=== PATIENT | female | born 2000 | race Two or more races ===

== ENCOUNTER 2021-06-03 00:38 | Observation (INO) | payer SELFPAY ==
[2021-06-03] MEDS ORDERED: IV RINGERS,LACTATED 1000ML 1,000 ML IV PRN (01:15)
[2021-06-03 01:28] LABS: BILIRUBIN,URINE NEGATIVE (NEG); CLARITY,URINE CLEAR; COLOR,URINE YELLOW; NITRITE,URINE NEGATIVE (NEG); PROTEIN,URINE 30 mg/dL (NEG-TRACE)
[2021-06-03 01:32] LABS: AMNIO PT NEGATIVE
[2021-06-03 01:38] LABS: RBC,URINE RARE /HPF (0-2)
[2021-06-03 01:40] LABS: BACTERIA,URINE 0 /HPF (0-FEW); YEAST,URINE PRESENT /HPF
== END 2021-06-03 03:32 | disposition home or self-care (01) ==
LOC: 3 SO LND 00:38
PROVIDERS: ADMIT Obstetrics & Gynecology; ATTEND Obstetrics & Gynecology
DX: O42.913 Preterm premature rupture of membranes, unspecified as to length of time between rupture and onset of labor, third trimester (principal); O26.893 Other specified pregnancy related conditions, third trimester; N89.8 Other specified noninflammatory disorders of vagina; Z3A.36 36 weeks gestation of pregnancy; Z79.899 Other long term (current) drug therapy
CPT/HCPCS: 36415; 59025; 81001; 84112; 87086; G0378; G0379

== ENCOUNTER 2021-06-07 03:33 | Inpatient (IN) | payer SELFPAY ==
[~2021-06-07] VITALS: Ht 165.1 cm; Wt 79.7 kg
[2021-06-07 04:03] LABS: BILIRUBIN,URINE NEGATIVE (NEG); CLARITY,URINE CLEAR; COLOR,URINE YELLOW; NITRITE,URINE NEGATIVE (NEG); PROTEIN,URINE NEGATIVE (NEG-TRACE); UROBILINOGEN,URINE 0.2 mg/dL (0.2 mg/dL)
[2021-06-07 04:09] LABS: BARBITURATES NEG (NEG); BENZODIAZEPINES NEG (NEG); CANNABINOIDS NEG (NEG); COCAINE NEG (NEG); METHADONE NEG (NEG); OPIATES NEG (NEG); PHENCYCLIDINE NEG (NEG)
[2021-06-07 04:10] LABS: BACTERIA,URINE 0 /HPF (0-FEW)
[2021-06-07 04:18] LABS: AMPHETAMINE/METHAMPHETAMINE NEG (NEG)
[2021-06-07] MEDS ORDERED: BENZOCAINE 20% TOPICAL AEROSOL SPRAY 57GM CAN. TP PRN (05:00)
[2021-06-07] MEDS ORDERED: diphenhydrAMINE HCL 25 MG CAPSULE PO PRN (05:00)
[2021-06-07] MEDS ORDERED: MAG HYDROX/ALUMINUM HYD/SIMETH 30 ML ORAL.SUSP PO PRN (05:00)
[2021-06-07] MEDS ORDERED: SIMETHICONE 80 MG TAB.CHEW PO PRN (05:00)
[2021-06-07] MEDS ORDERED: OXYTOCIN 30 UNIT/500 ML PREMIX 500 ML IV PRN ×2 (05:00→20:00)
[2021-06-07] MEDS ORDERED: MMR per PROTOCOL. MC PRN ×2 (05:00→20:00)
[2021-06-07] MEDS ORDERED: PHENYLEPH/MINERAL OIL/PETROLAT RECTAL OINTMENT TUBE. RC PRN (05:00)
[2021-06-07] MEDS ORDERED: 0.9 % SODIUM CHLORIDE 10 ML DISP.SYRIN. IV PRN ×2 (05:00→20:00)
[2021-06-07] MEDS ORDERED: ACETAMINOPHEN 325 MG TABLET. PO PRN (05:00)
[2021-06-07] MEDS ORDERED: TDaP (Adacel) per PROTOCOL. MC PRN ×2 (05:00→20:00)
[2021-06-07] MEDS ORDERED: ZOLPIDEM 5 MG TABLET. PO PRN (05:00)
[2021-06-07] MEDS ORDERED: HYDROCORTISONE 1% TOPICAL OINTMENT 30GM TUBE. TP PRN (05:00)
[2021-06-07] MEDS ORDERED: MAGNESIUM HYDROXIDE 2,400 MG/30 ML ORAL.SUSP. PO PRN (05:00)
[2021-06-07] MEDS ORDERED: oxyCODONE/APAP 5/325 1 TAB TABLET PO PRN (05:00)
[2021-06-07 05:31] VITALS: BP 117/70
[2021-06-07 06:29] LABS: HEMATOCRIT 35.2 % (36.0-47.0); HEMOGLOBIN 11.4 g/dL (12.0-15.5); RED BLOOD COUNT 4.16 x10^6/uL (3.50-5.40); RED CELL DISTRIBUTION WIDTH 14.8 % (11.5-14.5); WHITE BLOOD COUNT 15.8 x10^3/uL (4.0-11.0)
[2021-06-07] MEDS ORDERED: OXYTOCIN PREMIX 30 UNIT/500 ML NS BAG. IV ONE (07:30)
--- NOTE | 2021-06-07 08:05 | PDOC1 ---
ENDODONTIC ASSISTANT H&P Date of Admission: Date of Admission: Jun 07, 2021 at 03:33 History of Present Illness: EDC: 06/27/21 LMP: 08/13/20 21y @ 37.1 by 11wk u/s presents to L&D with LOF. The pt was confirmed SROM. The pt was dilated to 3 cm. PMH: Denies PSH: Denies Meds: PNV, Fe All: NKDA OBHx: G1 SH: no tob, no EtOH FH: noncontributory Allergies: Coded Allergies: No Known Drug Allergies (Unverified , 06/03/21) Physical Exam: Vital Signs: Vital Signs Date Time Temp Pulse Resp B/P (MAP) Pulse Ox O2 Delivery O2 Flow Rate FiO2 06/07/21 05:31 98.3 117 18 117/70 (86) 98 Room Air 98.3 PE: GENERAL: No apparent distress. Alert and oriented. HEENT: Head normocephalic, atraumatic. NECK: Supple LUNGS: Clear to auscultation. HEART: RRR, S1, S2 present, pulses intact ABDOMEN: Soft, positive bowel sounds. EXTREMITIES: No cyanosis or edema. NEUROLOGIC: Normal speech, normal tone PSYCHIATRIC: Normal affect, normal mood. SKIN: No ulceration. FHT: 150s +acels/no decels/mLTV [place]: 4-6 min SVE:3/75/-2 Labs: Laboratory Tests Test 06/07/21 03:50 06/07/21 05:03 Urine Collection Type Unknown Urine Color Yellow Urine Clarity Clear Urine pH 7.0 (<5.0-8.0) Urine Specific [place] <=1.005 (1.000-1.030) Urine Protein Negative mg/dL (NEG-TRACE) Urine Glucose (UA) Negative mg/dL (NEG) Urine Ketones (Stick) 40 mg/dL (NEG) Urine Blood Negative (NEG) Urine Nitrite Negative (NEG) Urine Bilirubin Negative (NEG) Urine Urobilinogen Dipstick 0.2 mg/dL (0.2 mg/dL) Urine Leukocyte Esterase Small (NEG) Urine RBC 1-2 /HPF (0-2) Urine WBC 1-4 /HPF (0-4) Urine Squamous Epithelial Cells Few /LPF Urine Bacteria 0 /HPF (0-FEW) Urine Mucus Slight /LPF Urine Opiates Screen Neg (NEG) Urine Methadone Screen Neg (NEG) Urine Barbiturates Neg (NEG) Urine Phencyclidine Screen Neg (NEG) Urine Amphetamine/Methamphetamine Neg (NEG) Urine Benzodiazepines Screen Neg (NEG) Urine Cocaine Screen Neg (NEG) Urine Cannabinoids Screen Neg (NEG) Urine Ethyl Alcohol Neg (NEG) White Blood Count 15.8 x10^3/uL (4.0-11.0) H Red Blood Count 4.16 x10^6/uL (3.50-5.40) Hemoglobin 11.4 g/dL (12.0-15.5) L Hematocrit 35.2 % (36.0-47.0) L Mean Corpuscular Volume 85 fL (79-100) Mean Corpuscular Hemoglobin 28 pg (25-35) Mean Corpuscular Hemoglobin Concent 33 g/dL (31-37) Red Cell Distribution Width 14.8 % (11.5-14.5) H Platelet Count 262 x10^3/uL (140-400) Laboratory Tests 06/07/21 05:03 Laboratory Tests 06/07/21 05:03 Assessment & Plan: A/P 21y @ 37.1 by 11wk u/s 1.) SROM on Pit for augmentation 2.) Marginal cord insertion 3.) hydronephrosis - resolved 4.) Elevated GTT - 0 of 4 values of 3hr GTT elevated 5.) Anemia - Fe daily 6.) Chl pos (12/04, 01/10) - ADELA neg (02/07) 7.) TDAP given 04/11/21 8.) Covid vaccine (J&J) given 01/10/21 9.) Fetus cat I FHT 10.) GBS pos on PCN LAILA YING MD Jun 07, 2021 08:05
[2021-06-07 08:06] VITALS: BP 101/60
--- NOTE | 2021-06-07 08:42 | PDOC ---
DIRECTOR TRIAL PROGRESS NOTE Date of Service: DATE: 06/07/21 TIME: 08:35 Subjective: Reports increased frequency/intensity of uterine contractions. Desires unmedicated labor/delivery. Denies FONTENOT, visual disturbances, RUQ pain. Otherwise denies complaints. Objective: Objective: Resting in right tilt position, breathing well through UCs/Palpate moderate. Fundus TTP. Afebrile, VSS. Leaking small amounts of clear, non-odorous fluid. SVE deferred. FHT: 155, mod variability, + accels, no decels. TOCO: q 2, 60 seconds. Vital Signs: Vital Signs Date Time Temp Pulse Resp B/P (MAP) Pulse Ox O2 Delivery O2 Flow Rate FiO2 06/07/21 05:31 98.3 117 18 117/70 (86) 98 Room Air 98.3 Vital Signs Date Time Temp Pulse Resp B/P (MAP) Pulse Ox O2 Delivery O2 Flow Rate FiO2 06/07/21 08:06 99.8 105 16 101/60 (74) 98 Room Air 99.8 Labs: Laboratory Tests Test 06/07/21 03:50 06/07/21 05:03 Urine Collection Type Unknown Urine Color Yellow Urine Clarity Clear Urine pH 7.0 (<5.0-8.0) Urine Specific [place] <=1.005 (1.000-1.030) Urine Protein Negative mg/dL (NEG-TRACE) Urine Glucose (UA) Negative mg/dL (NEG) Urine Ketones (Stick) 40 mg/dL (NEG) Urine Blood Negative (NEG) Urine Nitrite Negative (NEG) Urine Bilirubin Negative (NEG) Urine Urobilinogen Dipstick 0.2 mg/dL (0.2 mg/dL) Urine Leukocyte Esterase Small (NEG) Urine RBC 1-2 /HPF (0-2) Urine WBC 1-4 /HPF (0-4) Urine Squamous Epithelial Cells Few /LPF Urine Bacteria 0 /HPF (0-FEW) Urine Mucus Slight /LPF Urine Opiates Screen Neg (NEG) Urine Methadone Screen Neg (NEG) Urine Barbiturates Neg (NEG) Urine Phencyclidine Screen Neg (NEG) Urine Amphetamine/Methamphetamine Neg (NEG) Urine Benzodiazepines Screen Neg (NEG) Urine Cocaine Screen Neg (NEG) Urine Cannabinoids Screen Neg (NEG) Urine Ethyl Alcohol Neg (NEG) White Blood Count 15.8 x10^3/uL (4.0-11.0) H Red Blood Count 4.16 x10^6/uL (3.50-5.40) Hemoglobin 11.4 g/dL (12.0-15.5) L Hematocrit 35.2 % (36.0-47.0) L Mean Corpuscular Volume 85 fL (79-100) Mean Corpuscular Hemoglobin 28 pg (25-35) Mean Corpuscular Hemoglobin Concent 33 g/dL (31-37) Red Cell Distribution Width 14.8 % (11.5-14.5) H Platelet Count 262 x10^3/uL (140-400) Laboratory Tests 06/07/21 05:03 Laboratory Tests 06/07/21 05:03 Physical Exam: GENERAL: No apparent distress. Alert and oriented. HEENT: Head normocephalic, atraumatic. NECK: Supple LUNGS: Clear to auscultation. HEART: RRR, S1, S2 present, pulses intact ABDOMEN: Soft, positive bowel sounds. EXTREMITIES: No cyanosis or edema. NEUROLOGIC: Normal speech, normal tone PSYCHIATRIC: Normal affect, normal mood. SKIN: No ulceration. Assessment & Plan: Recc Gent 2/2 increasing maternal temp, fundal tenderness. Disscussed risks and concerns associated with PROM to include intrauterine infection and potential risks posed to . Pt. amenable. Titrate pitocin to adequate labor. Anticipate . AVELINA DORANTES CNM Jun 07, 2021 08:42
[2021-06-07] MEDS ORDERED: GENTAMICIN PER PHARMACY. MC PRN (08:45)
[2021-06-07] MEDS ORDERED: PENICILLIN G K 5,000,000 UNIT in IV DEXTROSE 5% 100ML 100 ML IV ONE (09:00)
[2021-06-07] MEDS ORDERED: GENTAMICIN SULFATE 80 MG in IV DEXTROSE 5% 100ML 100 ML IV ONE (09:30)
[2021-06-07 10:07] LABS: CREATININE < 0.2 mg/dL (0.6-1.0)
[2021-06-07] MEDS: IV RINGERS,LACTATED 1000ML 1,000 ML IV SCH ×2 (10:43→17:32)
--- NOTE | 2021-06-07 10:55 | NUR ---
Pharmacy Aminoglycoside Dosing Note S: Consulted to monitor and dose Gentamicin started 06/07/21 O:HOLLIBETO DE LA CRUZ is a 21 year old F with Chorioamnionitis Height: 5 feet, 5 inches Weight: 79.7 kg [place] Weight: 57.00 Adjusted Weight: 66.08 Dosing Weight:Adjusted Other Antibiotics: LABS: BUN: SCr:<0.2 CrCl: >100 WBC: 15.8 Platelet: Tmax (past 24 hours): 99.8 I/O: Last dose given 06/07/21 at 0925 A: Based on weight and renal function P: 1. Dose Gentamicin 1.2MG/KG IV q12h 2. Follow up peak levels on 06/08/21 at 1000 Follow up trough levels on 06/08/21 at 0830 3. Pharmacy will continue to monitor, follow and adjust therapy as needed. Angela Caraballo [facility], 06/07/21 [id number]
--- NOTE | 2021-06-07 11:00 | PDOC ---
WEBBING INSPECTOR PROGRESS NOTE Date of Service: DATE: 06/07/21 TIME: 10:52 Subjective: Reports increased intensity of UCs. Light spotting/bleeding with void. + FM. Otherwise denies complaints. Objective: Objective: Breathing well through contractions. FOB supportive at bedside, providing counter pressure for comfort. Afebrile, VSS. Gent complete. FHR: 155, moderate variability, + accels, occasional mild variable. TOCO: q 1.5-3 minutes, 60 seconds, palpate moderate. SVE 4/80/-1, soft, mid. Normal show with SVE. head well applied. Leaking small amounts of clear, non-odorous fluid. Vital Signs: Vital Signs Date Time Temp Pulse Resp B/P (MAP) Pulse Ox O2 Delivery O2 Flow Rate FiO2 06/07/21 05:31 98.3 117 18 117/70 (86) 98 Room Air 98.3 Vital Signs Date Time Temp Pulse Resp B/P (MAP) Pulse Ox O2 Delivery O2 Flow Rate FiO2 06/07/21 08:06 99.8 105 16 101/60 (74) 98 Room Air 99.8 Labs: Laboratory Tests Test 06/07/21 03:50 06/07/21 05:03 Urine Collection Type Unknown Urine Color Yellow Urine Clarity Clear Urine pH 7.0 (<5.0-8.0) Urine Specific [place] <=1.005 (1.000-1.030) Urine Protein Negative mg/dL (NEG-TRACE) Urine Glucose (UA) Negative mg/dL (NEG) Urine Ketones (Stick) 40 mg/dL (NEG) Urine Blood Negative (NEG) Urine Nitrite Negative (NEG) Urine Bilirubin Negative (NEG) Urine Urobilinogen Dipstick 0.2 mg/dL (0.2 mg/dL) Urine Leukocyte Esterase Small (NEG) Urine RBC 1-2 /HPF (0-2) Urine WBC 1-4 /HPF (0-4) Urine Squamous Epithelial Cells Few /LPF Urine Bacteria 0 /HPF (0-FEW) Urine Mucus Slight /LPF Urine Opiates Screen Neg (NEG) Urine Methadone Screen Neg (NEG) Urine Barbiturates Neg (NEG) Urine Phencyclidine Screen Neg (NEG) Urine Amphetamine/Methamphetamine Neg (NEG) Urine Benzodiazepines Screen Neg (NEG) Urine Cocaine Screen Neg (NEG) Urine Cannabinoids Screen Neg (NEG) Urine Ethyl Alcohol Neg (NEG) White Blood Count 15.8 x10^3/uL (4.0-11.0) H Red Blood Count 4.16 x10^6/uL (3.50-5.40) Hemoglobin 11.4 g/dL (12.0-15.5) L Hematocrit 35.2 % (36.0-47.0) L Mean Corpuscular Volume 85 fL (79-100) Mean Corpuscular Hemoglobin 28 pg (25-35) Mean Corpuscular Hemoglobin Concent 33 g/dL (31-37) Red Cell Distribution Width 14.8 % (11.5-14.5) H Platelet Count 262 x10^3/uL (140-400) Creatinine < 0.2 mg/dL (0.6-1.0) L Estimated GFR (Cockcroft-Gault) Treponema pallidum Antibody Nonreactive (Nonreactive) Laboratory Tests 06/07/21 05:03 Laboratory Tests 06/07/21 05:03 Laboratory Tests 06/07/21 05:03 Physical Exam: GENERAL: No apparent distress. Alert and oriented. HEENT: Head normocephalic, atraumatic. NECK: Supple LUNGS: Clear to auscultation. HEART: RRR, S1, S2 present, pulses intact ABDOMEN: Soft, positive bowel sounds. EXTREMITIES: No cyanosis or edema. NEUROLOGIC: Normal speech, normal tone PSYCHIATRIC: Normal affect, normal mood. SKIN: No ulceration. Assessment & Plan: A 1. 21yo G1 @ 37.1 weeks 2. PROM (06/03 @ 2300) 3. Chorioamnionitis 4. GBS positive 5. Cat 1 FHT P 1. Hold pitocin at 10mU at present, continue titration if UCs decrease in frequency or reported intensity 2. Continue Amp/Gent 3. Anticipate AVELINA DORANTES CNM Jun 07, 2021 11:00
[2021-06-07] MEDS: AMPICILLIN SODIUM 2 GM in IV NORMAL SALINE 100ML 100 ML IV SCH ×2 (12:27→19:06)
[2021-06-07] MEDS ORDERED: PENICILLIN G K 2,500,000 UNIT in IV DEXTROSE 5% 50 ML IV SCH (13:00)
[2021-06-07] MEDS: fentaNYL PF VIAL 100 MCG/2 ML VIAL IVP PRN ×2 (13:06→16:05)
--- NOTE | 2021-06-07 15:40 | PDOC ---
GOLD BLOWER PROGRESS NOTE Date of Service: DATE: 06/07/21 TIME: 15:36 Subjective: Reports contractions increased in intensity x 20 minutes. Breathing well through contractions. Resting complete right lateral. Objective: Objective: Leaking small amounts of clear, non-odorous fluid. SVE 5-6/90/-1, IUPC placed without difficulty. TOCO: q 2-3 minutes, lasting 60 seconds. Palpate strong. Afebrile, VSS. Pitocin at 12mU. Declines labor epidural for pain management. Repositioned to standing/swaying for comfort. Vital Signs: Vital Signs Date Time Temp Pulse Resp B/P (MAP) Pulse Ox O2 Delivery O2 Flow Rate FiO2 06/07/21 05:31 98.3 117 18 117/70 (86) 98 Room Air 98.3 Vital Signs Date Time Temp Pulse Resp B/P (MAP) Pulse Ox O2 Delivery O2 Flow Rate FiO2 06/07/21 13:06 20 96 Room Air 06/07/21 08:06 99.8 105 101/60 (74) 99.8 Labs: Laboratory Tests Test 06/07/21 03:50 06/07/21 05:03 Urine Collection Type Unknown Urine Color Yellow Urine Clarity Clear Urine pH 7.0 (<5.0-8.0) Urine Specific [place] <=1.005 (1.000-1.030) Urine Protein Negative mg/dL (NEG-TRACE) Urine Glucose (UA) Negative mg/dL (NEG) Urine Ketones (Stick) 40 mg/dL (NEG) Urine Blood Negative (NEG) Urine Nitrite Negative (NEG) Urine Bilirubin Negative (NEG) Urine Urobilinogen Dipstick 0.2 mg/dL (0.2 mg/dL) Urine Leukocyte Esterase Small (NEG) Urine RBC 1-2 /HPF (0-2) Urine WBC 1-4 /HPF (0-4) Urine Squamous Epithelial Cells Few /LPF Urine Bacteria 0 /HPF (0-FEW) Urine Mucus Slight /LPF Urine Opiates Screen Neg (NEG) Urine Methadone Screen Neg (NEG) Urine Barbiturates Neg (NEG) Urine Phencyclidine Screen Neg (NEG) Urine Amphetamine/Methamphetamine Neg (NEG) Urine Benzodiazepines Screen Neg (NEG) Urine Cocaine Screen Neg (NEG) Urine Cannabinoids Screen Neg (NEG) Urine Ethyl Alcohol Neg (NEG) White Blood Count 15.8 x10^3/uL (4.0-11.0) H Red Blood Count 4.16 x10^6/uL (3.50-5.40) Hemoglobin 11.4 g/dL (12.0-15.5) L Hematocrit 35.2 % (36.0-47.0) L Mean Corpuscular Volume 85 fL (79-100) Mean Corpuscular Hemoglobin 28 pg (25-35) Mean Corpuscular Hemoglobin Concent 33 g/dL (31-37) Red Cell Distribution Width 14.8 % (11.5-14.5) H Platelet Count 262 x10^3/uL (140-400) Creatinine < 0.2 mg/dL (0.6-1.0) L Estimated GFR (Cockcroft-Gault) Treponema pallidum Antibody Nonreactive (Nonreactive) Laboratory Tests 06/07/21 05:03 Laboratory Tests 06/07/21 05:03 Laboratory Tests 06/07/21 05:03 Physical Exam: GENERAL: No apparent distress. Alert and oriented. HEENT: Head normocephalic, atraumatic. NECK: Supple LUNGS: Clear to auscultation. HEART: RRR, S1, S2 present, pulses intact ABDOMEN: Soft, positive bowel sounds. EXTREMITIES: No cyanosis or edema. NEUROLOGIC: Normal speech, normal tone PSYCHIATRIC: Normal affect, normal mood. SKIN: No ulceration. Assessment & Plan: Continue current care. Anticipate . AVELINA DORANTES CNM Jun 07, 2021 15:40
--- NOTE | 2021-06-07 17:15 | PDOC ---
METAL TESTER PROGRESS NOTE Date of Service: DATE: 06/07/21 TIME: 17:11 Subjective: Difficulty coping with UCs. Declines labor epidural. Reports good pain relief with IV pain medication. FOB supportive at bedside. Objective: Objective: Afebrile, VSS. Resting in complete left lateral - amenable to hand/knees position to encourage rotation. . VTX LOP, asynclitic. SVE 6+/100/-1. FHR: 155, moderate variability, + accels, early/variable decels. IUPC: q 1.5-3. MVU: 225. Resting tone: 10mvu. Vital Signs: Vital Signs Date Time Temp Pulse Resp B/P (MAP) Pulse Ox O2 Delivery O2 Flow Rate FiO2 06/07/21 05:31 98.3 117 18 117/70 (86) 98 Room Air 98.3 Vital Signs Date Time Temp Pulse Resp B/P (MAP) Pulse Ox O2 Delivery O2 Flow Rate FiO2 06/07/21 16:05 20 Room Air 06/07/21 13:06 96 06/07/21 08:06 99.8 105 101/60 (74) 99.8 Labs: Laboratory Tests Test 06/07/21 03:50 06/07/21 05:03 Urine Collection Type Unknown Urine Color Yellow Urine Clarity Clear Urine pH 7.0 (<5.0-8.0) Urine Specific [place] <=1.005 (1.000-1.030) Urine Protein Negative mg/dL (NEG-TRACE) Urine Glucose (UA) Negative mg/dL (NEG) Urine Ketones (Stick) 40 mg/dL (NEG) Urine Blood Negative (NEG) Urine Nitrite Negative (NEG) Urine Bilirubin Negative (NEG) Urine Urobilinogen Dipstick 0.2 mg/dL (0.2 mg/dL) Urine Leukocyte Esterase Small (NEG) Urine RBC 1-2 /HPF (0-2) Urine WBC 1-4 /HPF (0-4) Urine Squamous Epithelial Cells Few /LPF Urine Bacteria 0 /HPF (0-FEW) Urine Mucus Slight /LPF Urine Opiates Screen Neg (NEG) Urine Methadone Screen Neg (NEG) Urine Barbiturates Neg (NEG) Urine Phencyclidine Screen Neg (NEG) Urine Amphetamine/Methamphetamine Neg (NEG) Urine Benzodiazepines Screen Neg (NEG) Urine Cocaine Screen Neg (NEG) Urine Cannabinoids Screen Neg (NEG) Urine Ethyl Alcohol Neg (NEG) White Blood Count 15.8 x10^3/uL (4.0-11.0) H Red Blood Count 4.16 x10^6/uL (3.50-5.40) Hemoglobin 11.4 g/dL (12.0-15.5) L Hematocrit 35.2 % (36.0-47.0) L Mean Corpuscular Volume 85 fL (79-100) Mean Corpuscular Hemoglobin 28 pg (25-35) Mean Corpuscular Hemoglobin Concent 33 g/dL (31-37) Red Cell Distribution Width 14.8 % (11.5-14.5) H Platelet Count 262 x10^3/uL (140-400) Creatinine < 0.2 mg/dL (0.6-1.0) L Estimated GFR (Cockcroft-Gault) Treponema pallidum Antibody Nonreactive (Nonreactive) Laboratory Tests 06/07/21 05:03 Laboratory Tests 06/07/21 05:03 Laboratory Tests 06/07/21 05:03 AVELINA DORANTES CNM Jun 07, 2021 17:15
--- NOTE | 2021-06-07 19:36 | PDOC4 ---
VAGINAL DELIVERY DATE DATE: 06/07/21 TIME: 19:21 : 1 Para: 1 EDC: Jun 27, 2021 VAGINAL DELIVERY: VTX VACCUM ASSISTED: No PLACENTA: Spontaneous 8/9 SEX: Female WEIGHT Weight [Pending] Nuchal Cord: No Amniotic Fluid: Clear PAIN: Natural EPISIOTOMY: No EXTENSION: No EBL 500ml ADDITIONAL NOTES First degree perineal laceration, hemostatic. Not repaired. Signs of Intrauterine Infectio: Temp >100.4, tachycardia, Uterine tenderness, Abnormal WBC Shoulder Dystocia: No Problems: (1) Marginal insertion of umbilical cord affecting management of mother (2) (3) 37 weeks gestation of (4) Positive GBS test (5) Normal spontaneous vaginal delivery (6) Chorioamnionitis Problem Qualifiers (1) : Weeks of gestation: 37 weeks Qualified Codes: Z3A.37 - 37 weeks gestation of (2) Chorioamnionitis: Fetus number: single or unspecified fetus AVELINA DORANTES CNM Jun 07, 2021 19:36
[2021-06-07] MEDS: IBUPROFEN 400 MG TABLET. PO PRN (19:56)
[2021-06-07] MEDS ORDERED: GENTAMICIN SULFATE 80 MG in IV DEXTROSE 5% 100ML 100 ML IV SCH (21:00)
[2021-06-07 22:00] VITALS: BP 122/69
[2021-06-07 23:15] VITALS: BP 104/60
[2021-06-08 03:37] VITALS: BP 102/69
[2021-06-08] MEDS: IBUPROFEN 400 MG TABLET. PO PRN ×3 (03:47→20:46)
[2021-06-08 04:06] LABS: BASO % 0 % (0-3); EOS % 0 % (0-3); HEMATOCRIT 32.5 % (36.0-47.0); HEMOGLOBIN 10.7 g/dL (12.0-15.5); LYMPH # 1.8 x10^3/uL (1.0-4.8); LYMPH % 10 % (24-48); MEAN CORPUSCULAR HEMOGLOBIN 28 pg (25-35); MEAN CORPUSCULAR HGB CONC 33 g/dL (31-37); MEAN CORPUSCULAR VOLUME 84 fL (79-100); MONO # 1.9 x10^3/uL (0.0-1.1); MONO % 10 % (0-9); NEUT # 15.4 x10^3/uL (1.8-7.7); NEUT % 80 % (31-73); PLATELET COUNT 275 x10^3/uL (140-400); RED BLOOD COUNT 3.88 x10^6/uL (3.50-5.40); RED CELL DISTRIBUTION WIDTH 14.7 % (11.5-14.5); WHITE BLOOD COUNT 19.2 x10^3/uL (4.0-11.0)
[2021-06-08 04:41] LABS: % BANDS 2 % (0-9); % LYMPHS 14 % (24-48); % MONOS 2 % (0-10); % SEGS 82 % (35-66); PLT ESTIMATE ADEQUATE (ADEQUATE); TOXIC GRANULATION SLIGHT
[2021-06-08] MEDS ORDERED: FERROUS SULFATE 325 MG TABLET. PO SCH (08:00)
[2021-06-08] MEDS ORDERED: GENTAMICIN TROUGH LEVEL. MC ONE (08:30)
[2021-06-08] MEDS: PRENATAL MULTIVITAMIN TABLET. PO SCH ×2 (09:00→09:03)
[2021-06-08] MEDS: DOCUSATE SODIUM 100 MG CAPSULE. PO PRN ×2 (09:03→20:47)
[2021-06-08 09:27] VITALS: BP 95/62
[2021-06-08] MEDS ORDERED: [UNRECOGNIZED DRUG - REMARK] MC ONE (10:00)
--- NOTE | 2021-06-08 10:55 | PDOC ---
COMPUTING SERVICES DIRECTOR PROGRESS NOTE Date of Service: DATE: 06/08/21 TIME: 10:53 Subjective: Doing well. Pain well managed with Motrin. Tolerates regular diet and activity without complaints. Breast/bottle feeding. Slept well overnight. Anticipating visitors this evening. Objective: Objective: FF at U-1, non-tender. Scant lochia, non-odorous. Breast/bottle feeding. Vital Signs: Vital Signs Date Time Temp Pulse Resp B/P (MAP) Pulse Ox O2 Delivery O2 Flow Rate FiO2 06/07/21 08:06 99.8 105 16 101/60 (74) 98 Room Air 99.8 Vital Signs Date Time Temp Pulse Resp B/P (MAP) Pulse Ox O2 Delivery O2 Flow Rate FiO2 06/08/21 09:27 98.3 77 18 95/62 (73) 96 Room Air 98.3 Labs: Laboratory Tests Test 06/08/21 03:20 White Blood Count 19.2 x10^3/uL (4.0-11.0) H Red Blood Count 3.88 x10^6/uL (3.50-5.40) Hemoglobin 10.7 g/dL (12.0-15.5) L Hematocrit 32.5 % (36.0-47.0) L Mean Corpuscular Volume 84 fL (79-100) Mean Corpuscular Hemoglobin 28 pg (25-35) Mean Corpuscular Hemoglobin Concent 33 g/dL (31-37) Red Cell Distribution Width 14.7 % (11.5-14.5) H Platelet Count 275 x10^3/uL (140-400) Neutrophils (%) (Auto) 80 % (31-73) H Lymphocytes (%) (Auto) 10 % (24-48) L Monocytes (%) (Auto) 10 % (0-9) H Eosinophils (%) (Auto) 0 % (0-3) Basophils (%) (Auto) 0 % (0-3) Neutrophils # (Auto) 15.4 x10^3/uL (1.8-7.7) H Lymphocytes # (Auto) 1.8 x10^3/uL (1.0-4.8) Monocytes # (Auto) 1.9 x10^3/uL (0.0-1.1) H Eosinophils # (Auto) 0.0 x10^3/uL (0.0-0.7) Basophils # (Auto) 0.0 x10^3/uL (0.0-0.2) Segmented Neutrophils % 82 % (35-66) H Band Neutrophils % 2 % (0-9) Lymphocytes % 14 % (24-48) L Monocytes % 2 % (0-10) Toxic Granulation Slight Platelet Estimate Adequate (ADEQUATE) Laboratory Tests 06/08/21 03:20 Laboratory Tests 06/08/21 03:20 Physical Exam: GENERAL: No apparent distress. Alert and oriented. HEENT: Head normocephalic, atraumatic. ABDOMEN: Soft. EXTREMITIES: No cyanosis or edema. NEUROLOGIC: Normal speech, normal tone PSYCHIATRIC: Normal affect, normal mood. SKIN: No ulceration. Assessment & Plan: A/P 1. 21yo , PPD#1 2. 1st degree perineal lac 3. Anemia - continue Fe 4. - continue PNV 5. TDAP 04/11/21 6. Covid Vaccine (J&J) 01/10/21 Anticipate d/c home tomorrow. AVELINA DORANTES CNM Jun 08, 2021 10:55
[2021-06-08 12:19] VITALS: BP 99/58
--- NOTE | 2021-06-08 16:17 | NUR ---
Mirela Arguello states ok to take IV out, RN removes at this time.
[2021-06-08 18:00] VITALS: BP 96/54
[2021-06-08 20:30] VITALS: BP 89/55
[2021-06-09 05:35] VITALS: BP 100/64
[2021-06-09] MEDS: PRENATAL MULTIVITAMIN TABLET. PO SCH (07:30)
[2021-06-09] MEDS: IBUPROFEN 400 MG TABLET. PO PRN (07:30)
[2021-06-09] MEDS ORDERED: DOCU-109 PO (09:02)
[2021-06-09] MEDS ORDERED: IBUP-1060 PO (09:02)
--- NOTE | 2021-06-09 09:07 | PDOC ---
COLD TYPE COMPOSING MACHINE OPERATOR PROGRESS NOTE Date of Service: DATE: 06/09/21 TIME: 09:05 Subjective: Pt with good pain control. Adebayo PO. Voiding. Minimal lochia Objective: Vital Signs: Vital Signs Date Time Temp Pulse Resp B/P (MAP) Pulse Ox O2 Delivery O2 Flow Rate FiO2 06/08/21 09:22 Room Air 06/08/21 09:27 98.3 77 18 95/62 (73) 96 98.3 Vital Signs Date Time Temp Pulse Resp B/P (MAP) Pulse Ox O2 Delivery O2 Flow Rate FiO2 06/09/21 05:35 98.0 72 18 100/64 (76) 99 Room Air 98.0 Physical Exam: GENERAL: No apparent distress. Alert and oriented. HEENT: Head normocephalic, atraumatic. NECK: Supple LUNGS: Clear to auscultation. HEART: RRR, S1, S2 present, pulses intact ABDOMEN: Soft, positive bowel sounds. EXTREMITIES: No cyanosis or edema. NEUROLOGIC: Normal speech, normal tone PSYCHIATRIC: Normal affect, normal mood. SKIN: No ulceration. FFNT below umb No C/C/E Assessment & Plan: A/P 21y PPD #2 s/p 1.) PP doing well 2.) IAI AF since delivery 3.) Anemia Hgb 11.4 -> 10.7 4.) TDAP given 04/11/21 5.) Covid vaccine (J&J) given 01/10/21 6.) 7.) D/c home LAILA YING MD Jun 09, 2021 09:07
[2021-06-09 14:00] VITALS: BP 98/59
--- NOTE | 2021-06-09 16:32 | NUR ---
Pt. Discharged in stable condition accompanied by significant other. discharged via car seat. Placed securely in car seat with base in place rear facing.
--- NOTE | 2021-06-12 10:37 | DS ---
DATE OF DISCHARGE: 06/09/2021 ADMISSION DIAGNOSES: 1. Intrauterine at 37 and 1 weeks by 11-week ultrasound. 2. Spontaneous rupture of membranes. 3. Prolonged rupture of membranes. 4. Marginal cord insertion. 5. Status post tetanus, diphtheria, pertussis. 6. Group B Streptococcus positive. DISCHARGE DIAGNOSES: 1. Intrauterine at 37 and 1 weeks by 11-week ultrasound. 2. Spontaneous rupture of membranes. 3. Prolonged rupture of membranes. 4. Marginal cord insertion. 5. Status post tetanus, diphtheria, pertussis. 6. Group B Streptococcus positive. PROCEDURE: Normal spontaneous vaginal delivery. BRIEF HOSPITAL COURSE: The patient is a 21-year-old G1 who presented to Labor and Delivery at 37 and 1 weeks by 11-week ultrasound with complaints of leaking clear nonodorous fluid. She reports suspected rupture of membranes on the evening of 06/03 at approximately 11:30 p.m. was complicated by a marginal cord insertion. Upon presentation, Pitocin augmentation was initiated secondary to prolonged rupture of membranes. During the course of her labor, she was found to have intra-amniotic infection, which was treated with ampicillin and gentamicin. She delivered at 1921 over a first-degree laceration, which was not repaired. Her course was routine. She remained afebrile. She was . DISCHARGE INSTRUCTIONS: The patient was told not to lift anything greater than 20 pounds, pelvic rest for 6 weeks, no driving on narcotics. CALL IF: The patient was told to call if she had fevers, chills, nausea, vomiting, abdominal pain or any additional questions or concerns. FOLLOWUP APPOINTMENT: The [place] was [place] [facility] [place] care. DISCHARGE MEDICATIONS: Per medical record. EB DR: Linnea TID: [id number]
--- NOTE | 2021-06-12 16:15 | PATHOLOGY ---
[facility] Accession Number: [id number] . 01 Material submitted: . placenta - PARTIAL CORD AND PLACENTA . 01 Clinical history: . , MARGINAL CORD INSERTION INTRAUTERINE SINGLE GESTATION . 02 Diagnosis: 440 gram early term placenta of an estimated 37 weeks 1 day gestation with attached membranes and umbilical cord: - Placental weight for estimated gestational age at approximately 40-50th percentile. - Acute chorionitis and focal early acute chorioamnionitis of placental membranes. - Focal acute subchorionitis of chorionic plate. - Acute funisitis, focal. - Eccentric insertion of umbilical cord. LBQ 06/12/2021 1504 Local . 02 Comment: There are no infarcts. There is no evidence of villitis. (JPM/db; 06/12/2021) . 02 Electronically signed: . Abraham Cohen MD, Pathologist NPI- [id number] . 01 Gross description: . Fixative: Formalin Labeled: Placenta Specimen received: Chaves placenta with attached membranes and umbilical cord Trimmed placental weight: 440 g Dimensions: 17.4 x 15.0 x 2.8 cm membranes: [place], translucent membrane rupture: 2.8 cm from placental disc surface: Intact displaying a normal arborizing vasculature pattern Umbilical cord: 36.6 cm in length, 1.0-1.6 cm in diameter Umbilical cord insertion: Eccentric, 3.0 cm from the closest placental margin Number of umbilical vessels: 3 Umbilical cord appearance: White-miramontes with minimal helical twisting Maternal surface: Intact and complete with a slight amount of adherent blood coagulum Cut surfaces: Red-brown Abnormalities: None identified . Straightening Roll Operator sections are submitted as follows: A1 surface vessels and proximal umbilical cord A2 membranes and umbilical cord A3-A4 visitor services representative sections of maternal surface. (CAA; 06/08/2021) QAC/QAC 06/08/2021 1626 Local . 02 Pathologist provided ICD-10: O41.1230, O43.893, Z37.0, Z3A.38 . 02 CPT . 971771 Specimen Comment: A courtesy copy of this report has been sent to [phone], [phone] Specimen Comment: [id number] Specimen Comment: Report sent to / DR YING Performed at: 01 [facility] [address], [place] [id number] MD Justus Major MD Phone: [phone] Performed at: 02 [facility] [address] [place], [place] [id number] MD Abraham Cohen MD Phone: [phone]
== END 2021-06-09 16:39 | disposition home or self-care (01) | DRG 805 ==
LOC: 3 SO LND 03:33 → OBSVTOIN 03:33 → 3 SO LND 21:45
PROVIDERS: ADMIT Obstetrics & Gynecology; ATTEND Obstetrics & Gynecology
PROC: 10E0XZZ Delivery of Products of Conception, External Approach (ICD-10-PCS; principal; 2021-06-07)
DX: O99.824 Streptococcus B carrier state complicating childbirth (principal); O41.1230 Chorioamnionitis, third trimester, not applicable or unspecified; Z37.0 Single live birth; O42.92 Full-term premature rupture of membranes, unspecified as to length of time between rupture and onset of labor; O43.193 Other malformation of placenta, third trimester; O70.0 First degree perineal laceration during delivery; O99.02 Anemia complicating childbirth; Z3A.37 37 weeks gestation of pregnancy; D64.9 Anemia, unspecified
CPT/HCPCS: 36415; 80307; 81001; 82565; 85007; 85025; 85027; 86592; 86850; 86900; 86901; 87070; 87071; 87075; 87076; 87077; 87086; 87186; 88307; J0290; J1580; J2540; J2590; J3010; J7060; J7120; G0378